=== PATIENT | male | born 1980 | race African-American/Black ===

== ENCOUNTER 2017-05-09 08:18 | Emergency (ER) | payer MEDICAID, OTHER ==
[~2017-05-09] VITALS: Ht 180.3 cm; Wt 77.0 kg
[~2017-05-09 08:18] MED LIST: CEPH-568; HYDR-3927
[2017-05-09 08:43] VITALS: BP 116/72
== END 2017-05-09 10:58 | disposition home or self-care (01) ==
LOC: ER 09:44
DX: Z48.02 Encounter for removal of sutures (principal); L03.90 Cellulitis, unspecified; F17.210 Nicotine dependence, cigarettes, uncomplicated; Z88.4 Allergy status to anesthetic agent
CPT/HCPCS: 99282; Z7610